=== PATIENT | male | born 1995 | race Caucasian/White ===

== ENCOUNTER 2024-03-10 09:29 | Emergency (ER) | payer SELFPAY ==
[2024-03-10 09:30] VITALS: BP 118/68; PULSE 105; RESP 18; TEMP 37.3; O2SAT 95; BMI 37.7
--- NOTE | 2024-03-10 10:34 | EDS_ITS ---
HPI History of Present Illness Chief Complaint: General Illness Informant: patient Onset/Context/Timing Onset: Days (3) Context: Sudden Onset Timing: Continuous Quality: Aching Location: Generalized Worsened by: Movement Relieved by: Nothing Narrative Narrative: Patient presents with fever, body aches, cough, shortness of breath, and chest pain that has been getting worse over the past 3 days. Patient states he went to the urgent care today and while he was there he had an episode where he could not see and was having some generalized weakness. Patient states this lasted approximately 5 to 7 minutes. Patient states he was then told to come to the emergency department for further evaluation. Patient states he has had a recent sore throat. Patient states he is coughing up some green sputum. Patient admits to general myalgias and bodyaches. Patient also admits to a headache. Patient states his pain is worse with any movement or activity. Patient states his temperature at home has been up to 103. Patient states he has had some sweats with this. PFSH PFSH Medical History no medical history no medical history Allergy/AdvReac Type Severity Reaction Status Date / Time amoxicillin Allergy Mild Rash Verified 03/10/24 09:30 Surgical History no surgical history no surgical history Social History Smoking Status: Never smoker ROS ROS ED Constitutional Constitutional ED: Reports fever(s) and sweats; Denies chills Eyes Eyes: Reports change in vision; Denies blurry vision or diplopia ENT ENT ED: Reports sore throat; Denies rhinorrhea Cardiovascular Cardiovascular: Reports chest pain; Denies palpitations Respiratory/Chest Respiratory/Chest: Reports cough, dyspnea and sputum Gastrointestinal Gastrointestinal: Denies nausea or vomiting Genitourinary Genitourinary ED: Denies dysuria or hematuria Musculoskeletal Musculoskeletal: Reports back pain and myalgias Integumentary Denies abscess or rash Neurologic Neurologic: Reports headache(s); Denies weakness Allergic/Immunologic Allergic/Immunologic ED: Denies mouth swelling or urticaria EXAM Physical Exam Const Vital Signs: 03/10/24 09:30 03/10/24 11:15 03/10/24 11:17 Temperature 99.1 F 97.9 F Temperature Source Oral Temporal Pulse Rate 105 H 93 Pulse Rate [Lying] Pulse Rate [Sitting (for 1 minute prior to obtaining)] Pulse Rate [Standing (for 1 minute prior to obtaining)] Respiratory Rate 18 16 Respiratory Effort Normal Non-Labored Respiratory Pattern Normal Blood Pressure 118/68 99/68 Blood Pressure [Lying] Blood Pressure [Sitting (for 1 minute prior to obtaining)] Blood Pressure [Standing (for 1 minute prior to obtaining)] Blood Pressure Mean 84 78 Blood Pressure Mean [Lying] Blood Pressure Mean [Sitting (for 1 minute prior to obtaining)] Blood Pressure Mean [Standing (for 1 minute prior to obtaining)] Pulse Ox 95 95 Oxygen Delivery Method Room Air Room Air 03/10/24 12:47 Temperature Temperature Source Pulse Rate Pulse Rate [Lying] 83 Pulse Rate [Sitting (for 1 minute prior to obtaining)] 93 Pulse Rate [Standing (for 1 minute prior to obtaining)] 94 Respiratory Rate Respiratory Effort Respiratory Pattern Blood Pressure Blood Pressure [Lying] 101/64 Blood Pressure [Sitting (for 1 minute prior to obtaining)] 99/66 Blood Pressure [Standing (for 1 minute prior to obtaining)] 104/59 L Blood Pressure Mean Blood Pressure Mean [Lying] 76 Blood Pressure Mean [Sitting (for 1 minute prior to obtaining)] 77 Blood Pressure Mean [Standing (for 1 minute prior to obtaining)] 74 Pulse Ox Oxygen Delivery Method Positive well nourished, well developed and obese General Appearance ED: well developed and NAD Nutritional Appearance: obese HEENT Reports moist mucous membranes Neck supple and no JVD Resp normal respiratory effort and clear to auscultation bilaterally Cardio regular rate and regular rhythm GI non-tender and non-distended Palpation: soft Extremity normal to inspection General Extremety ED: Negative for edema General Extremity: Negative for edema Neuro oriented x3, CN's II-XII intact bilaterally and no sensory deficits noted Sensorium / Orientation: alert Motor Exam: strength 5/5 throughout Psych mental status grossly normal MDM MDM MDM Narrative Medical decision making narrative: Differential diagnosis includes pneumonia, bronchitis, viral illness, dehydration, and electrolyte abnormality. CBC will be obtained to assess for leukocytosis and anemia. Basic metabolic profile will be obtained to assess for electrolyte abnormality and renal function. Chest x-ray will be obtained to assess for pneumonia and pneumothorax. COVID-19, influenza, and RSV PCR will be obtained to assess for viral illness. Lab Data Attestation: I reviewed the patient's lab results. Lab results narrative: CBC was reviewed and was within normal limits. Basic metabolic profile was reviewed and was within normal limits. COVID-19 PCR was reviewed and was negative. Influenza PCR was reviewed and was negative for influenza A and influenza B. RSV PCR was reviewed and was negative. Labs: Laboratory Results - last 24 hr 03/10/24 11:00 WBC 9.6 RBC 5.58 Hgb 16.4 Hct 47.2 MCV 84.6 MCH 29.4 MCHC 34.7 RDW Std Deviation 38.6 RDW Coeff of Gladys 12.5 Plt Count 204 MPV 8.6 Immature Gran % (Auto) 0.300 Neut % (Auto) 81.6 H Lymph % (Auto) 7.2 L [place] % (Auto) 10.5 H Eos % (Auto) 0.2 Baso % (Auto) 0.2 Absolute Neuts (auto) 7.8 H Absolute Lymphs (auto) 0.69 L Nucleated RBC % 0 Sodium 135 L Potassium 4.3 Chloride 105 Carbon Dioxide 24.0 Anion Gap 6 BUN 13 Creatinine 0.95 Estim Creat Clear Calc 148.52 Est GFR (MDRD) Af Amer 121 Est GFR (MDRD) Non-Af 100 BUN/Creatinine Ratio 13.7 Glucose 116 H Calcium 9.4 Radiography Diagnostic Testing: Clinical Impression(s) from Imaging Studies Chest X-Ray 03/10/24 10:47 IMPRESSION: Normal x-ray examination of the chest. Electronically Signed: Alex Butt MD at 12:12 EDT , PA and lateral chest x-ray was obtained. There are 2 views. On my independent interpretation, lung elena are clear. There is normal cardiac silhouette. Bony thorax is normal. There is no acute process noted. Radiologist also interpreted the x-ray and agrees. Treatment and Re-Evaluation :: Patient was given a dose of Toradol here. Patient was given IV fluids. Orthostatic vital signs were obtained and were negative. Patient was feeling better on reevaluation. Patient was advised of his findings. Patient was advised that this is most likely a viral illness. Patient was instructed to drink plenty of fluids. Patient was instructed to take Tylenol or ibuprofen as needed for pain. Patient understood and was agreeable with the plan. All questions were answered. Discharge Plan Triage Chief Complaint: General Illness ED Provider: Jonathan Leiva Dx/Rx/DC Orders Clinical Impression: Viral illness Instructions: ED Viral Syndrome (Adult) Primary Care Provider: Care Physician,No Primary Referrals: Moshe Pillai MD [Med Staff - [facility]] - 5-7 Days Care Physician,No Primary [Primary Care Provider] - Print Language: Kinyarwanda Disposition Disposition: Home, Self Care
--- NOTE | 2024-03-10 10:47 | RAD_ITS ---
STUDY: X-RAY CHEST REASON FOR EXAM: Male, 28 years old. Cough TECHNIQUE: PA and lateral views of the chest. COMPARISON: None. FINDINGS: The lungs are clear and expanded. There is no demonstrated pleural abnormality. Normal size heart. Normal mediastinum and amor. Normal visualized pulmonary arteries. Normal visualized aortic arch and descending thoracic aorta. Normal visualized thoracic spine. Normal visualized ribs, clavicles, and shoulders. There is no demonstrated abnormality of the visualized soft tissue structures of the upper abdomen. RAD/Chest PA and Lateral IMPRESSION: Normal x-ray examination of the chest. Electronically Signed: Alex Butt MD at 12:12 EDT ,
[2024-03-10 11:07] LABS: Absolute Lymphocyte Count 0.69 X10^3/uL (0.83-4.51); Absolute Neutrophil Count 7.8 X10^3/uL (2.0-7.7); Basophil# 0.02 X10^3/uL; Basophil% 0.2 % (0-1); Eosinophil# 0.02 X10^3/uL; Eosinophils% 0.2 % (0-5); Hematocrit 47.2 % (40-54); Hemoglobin 16.4 g/dL (13.0-16.5); Lymphocyte # 0.69 X10^3/ul (0.83-4.51); Lymphocyte % 7.2 % (19-41); Mean Corp Hgb Conc 34.7 g/dL (32-36); Mean Corpuscular Hgb 29.4 pg (27.0-32.0); Mean Corpuscular Volume 84.6 fL (80-94); Mean Platelet Vol. 8.6 fl (6.2-12.0); Monocyte# 1.01 X10^3/uL; Monocyte% 10.5 % (0-10); NRBC Flagged by Analyzer 0 % (0-5); Neutrophil # 7.84 X10^3/uL (2.7-7.7); Neutrophil % 81.6 % (47-70); Platelet Count 204 K/mm3 (150-450); RBC Distribution Width CV 12.5 % (11.6-14.6); RBC Distribution Width SD 38.6 fl (35.1-43.9); Red Blood Count 5.58 M/mm3 (4.6-6.2); White Blood Count 9.6 K/mm3 (4.4-11.0)
[2024-03-10 11:15] VITALS: BP 99/68; PULSE 93; RESP 16; TEMP 36.6; O2SAT 95
[2024-03-10] MEDS: Ketorolac 30 MG/ML Syringe IV (11:33)
[2024-03-10 11:38] LABS: Anion Gap 6 (5-15); BUN 13 mg/dL (7-18); BUN/Creat Ratio 13.7 RATIO (10-20); Calcium,Total 9.4 mg/dL (8.5-10.1); Chloride 105 mmol/L (98-107); Creatinine, Serum 0.95 mg/dL (0.70-1.30); EST Glomerular Filtration Rate 100 mL/min (>60); Est Glom Filt Rate - Afr Amer 121 mL/min (>60); Estimated Creatinine Clearance 148.52 ml/min; Glucose 116 mg/dL (74-106); Potassium 4.3 mmol/L (3.5-5.1); Sodium Level 135 mmol/L (136-145)
[2024-03-10 12:47] VITALS: BP 101/64; BP 104/59; BP 99/66; PULSE 83; PULSE 93; PULSE 94
[2024-03-10 13:15] VITALS: BP 99/68; PULSE 93; RESP 16; TEMP 36.6; O2SAT 95
== END 2024-03-10 13:17 | disposition home or self-care (01) ==
PROVIDERS: Emergency Provider Emergency Medicine; Visit Provider Emergency Medicine
DX: B34.9 Viral infection, unspecified (principal); R06.02 Shortness of breath; R07.9 Chest pain, unspecified
CPT/HCPCS: 71046; 80048; 85025; 87631; 99284; A4216